=== PATIENT | male | born 1985 | race Caucasian/White ===

== ENCOUNTER 2020-03-15 05:40 | Emergency (ER) | payer OTHER ==
[~2020-03-15] VITALS: Ht 167.6 cm; Wt 95.3 kg
--- NOTE | 2020-03-15 05:40 | NUR ---
PT BIB [facility], PREBOOK. TAKEN TO CHAIR A
[2020-03-15 05:45] VITALS: BP 156/96
--- NOTE | 2020-03-15 06:09 | NUR ---
Dr. Turner examining patient.
--- NOTE | 2020-03-15 06:19 | NUR ---
PATIENT [facility] PATIENT EXAMINED BY DR. MERCEDES. PATIENT MEDICALLY CLEARED AND RELEASED IN CUSTODY IN STABLE CONDITION. ORIGINAL PRE-BOOK FORM GIVEN TO OFFICER BETTE, #[id number].
== END 2020-03-15 06:19 ==
LOC: MED 05:40
DX: Z04.1 Encounter for examination and observation following transport accident (principal); Z02.89 Encounter for other administrative examinations; V47.5XXA Car driver injured in collision with fixed or stationary object in traffic accident, initial encounter; Y93.89 Activity, other specified; Y92.89 Other specified places as the place of occurrence of the external cause; Y99.8 Other external cause status
CPT/HCPCS: 99283